=== PATIENT | female | born 1970 | race Caucasian/White ===

== ENCOUNTER 2019-01-13 09:14 | Outpatient (CLI) | payer OTHER ==
--- NOTE | 2019-01-14 11:05 | MMO ---
Bilateral MAMMO Bilat Screen [facility]. CLINICAL HISTORY: Patient is 48 years old and is seen for screening. The patient has no family history of breast cancer. The patient has no personal history of cancer. VIEWS: The views performed were: bilateral craniocaudal and bilateral mediolateral oblique. This study has been interpreted with the assistance of computer-aided detection. MAMMOGRAM FINDINGS: The breasts are heterogeneously dense, which could obscure a lesion on mammography. There are no suspicious masses, suspicious calcifications, or new areas of architectural distortion. IMPRESSION: THERE IS NO MAMMOGRAPHIC EVIDENCE OF MALIGNANCY. A ROUTINE FOLLOW-UP MAMMOGRAM IN 1 YEAR IS RECOMMENDED. ACR BI-RADS Category 1 - Negative MAMMOGRAPHY NOTE: 1. A negative mammogram report should not delay a biopsy if a dominant of clinically suspicious mass is present. 2. Approximately 10% to 15% of breast cancers are not detected by mammography. 3. Adenosis and dense breasts may obscure an underlying neoplasm. Reported by: JEREMIAS LUNDBERG MD Electonically Signed: [id number]
== END 2019-01-13 09:15 | disposition home or self-care (01) ==
LOC: SCSMAMMO 09:14
PROVIDERS: ATTEND Family Medicine
DX: Z12.31 Encounter for screening mammogram for malignant neoplasm of breast (principal)
CPT/HCPCS: 77067

== ENCOUNTER 2020-09-26 05:19 | Day surgery (SDC) | payer OTHER ==
[2020-09-22 13:32] VITALS: BMI 23.3
[2020-09-26] MEDS ORDERED: Fentanyl 100 MCG/2 ML VIAL ONE (06:03)
[2020-09-26] MEDS ORDERED: Midazolam HCl 2 mg/2 ml Vial ONE (06:03)
[2020-09-26] MEDS ORDERED: Sodium Chloride 0.9% 10 ML ONE (06:20)
[2020-09-26] MEDS ORDERED: Bacitracin Zinc Ointment 30 gm TUBE ONE (06:20)
[2020-09-26] MEDS ORDERED: Bupivacaine PF 0.5% 30 ML VIAL ONE (06:20)
[2020-09-26 07:14] LABS: Hemoglobin 14.9 g/dL (12.0-16.0); Mean Corpuscular HGB CONC 31.9 g/dL (32.0-36.0); Mean Corpuscular Hemoglobin 29.6 pg (27.0-31.0); Mean Corpuscular Volume 92.9 fL (78.0-98.0); Platelet Count 160 thou/uL (130-400); Red Blood Cell (RBC) Count 5.04 mill/uL (4.20-5.40); White Blood Cell (WBC) Count 8.8 thou/uL (4.8-10.8)
[2020-09-26] MEDS ORDERED: PROPOFOL 200 MG/20 ML VIAL ONE (07:17)
[2020-09-26] MEDS ORDERED: Dexamethasone 20 MG/5 ML VIAL ONE (07:17)
[2020-09-26] MEDS ORDERED: Ondansetron PF 4 MG/2 ML Vial ONE (07:17)
[2020-09-26] MEDS ORDERED: Lidocaine 1% PF 5 ML VIAL ONE (07:17)
[2020-09-26 07:50] LABS: Band 3 % (5-11); Eosinophils 11 % (0-10); Lymphocytes 21 % (21-51); MDiff Complete? YES; Monocytes 11 % (0-10); Neutrophil 53 % (42-75); Platelet Morphology Comment Appears Adequate; Polychromasia SLIGHT = 2-3 cells (100X) (0-2/hpf)
[2020-09-26] MEDS ORDERED: Ketorolac Tromethamine 30 MG/ML VIAL ONE (09:48)
== END 2020-09-26 11:40 | disposition home or self-care (01) ==
LOC: SDC 05:19
PROVIDERS: ATTEND Orthopaedic Surgery Hand Surgery
PROC: 0RGW04Z Fusion of Right Finger Phalangeal Joint with Internal Fixation Device, Open Approach (ICD-10-PCS; principal; 2020-09-26)
DX: M19.041 Primary osteoarthritis, right hand (principal)
CPT/HCPCS: 36415; 76000; 85025; J0690; J1100; J1885; J2250; J2405; J2704; J3010; J3490; S0020

== ENCOUNTER 2021-04-02 10:40 | Day surgery (SDC) | payer OTHER ==
[2021-03-30 11:28] VITALS: BMI 23.4
[2021-04-02] MEDS ORDERED: Fentanyl 100 MCG/2 ML VIAL ONE (13:22)
[2021-04-02] MEDS ORDERED: Midazolam HCl 2 mg/2 ml Vial ONE (13:58)
[2021-04-02] MEDS ORDERED: Scopolamine 1.5 mg/72 hour Patch ONE (13:58)
[2021-04-02] MEDS ORDERED: ceFAZolin 2 GM/DEX 5% 100 ML BAG ONE (14:02)
[2021-04-02] MEDS ORDERED: ePHEDrine 50 MG/ML VIAL ONE (14:15)
[2021-04-02] MEDS ORDERED: PROPOFOL 200 MG/20 ML VIAL ONE (14:15)
[2021-04-02] MEDS ORDERED: Lidocaine 1% PF 5 ML VIAL ONE (14:15)
[2021-04-02] MEDS ORDERED: Ondansetron PF 4 MG/2 ML Vial ONE (14:15)
[2021-04-02] MEDS ORDERED: Dexamethasone 20 MG/5 ML VIAL ONE (14:15)
[2021-04-02] MEDS ORDERED: Bupivacaine PF 0.5% 30 ML VIAL ONE (14:18)
[2021-04-02] MEDS ORDERED: Bacitracin Zinc Ointment 30 gm TUBE ONE (14:56)
[2021-04-02] MEDS ORDERED: Ketorolac Tromethamine 30 MG/ML VIAL ONE (15:42)
== END 2021-04-02 17:00 ==
LOC: EEVIPCON → SDC 10:40
PROVIDERS: ATTEND Orthopaedic Surgery Hand Surgery
PROC: 0RGW04Z Fusion of Right Finger Phalangeal Joint with Internal Fixation Device, Open Approach (ICD-10-PCS; principal; 2021-04-02)
DX: T84.84XA Pain due to internal orthopedic prosthetic devices, implants and grafts, initial encounter (principal); T84.210A Breakdown (mechanical) of internal fixation device of bones of hand and fingers, initial encounter; Z79.899 Other long term (current) drug therapy; Z88.1 Allergy status to other antibiotic agents; Z98.1 Arthrodesis status
CPT/HCPCS: 76000; 93005; 93010; J1100; J1885; J2250; J2405; J2704; J3010; J3490; S0020